=== PATIENT | female | born 1995 | race African-American/Black ===

== ENCOUNTER 2017-03-18 23:44 | Emergency (ER) | payer OTHER ==
[~2017-03-18] VITALS: Ht 162.6 cm; Wt 102.1 kg
[~2017-03-18 23:44] MED LIST: CITRATE OF MAG296 ML PO; NOHOMEMEDICATIONS; PRENATAL PO; ULTRAM 50MG TAB50 MG PO; ZPAK PO
[2017-03-18] MEDS ORDERED: TYLENOL EXTRA500 MG PO (23:59)
[2017-03-19] MEDS ORDERED: ZOFRAN ODT8 MG PO ×2 (01:20→01:25)
== END 2017-03-19 01:33 | disposition home or self-care (01) ==
LOC: ER 23:44
DX: J06.9 Acute upper respiratory infection, unspecified (principal); R11.2 Nausea with vomiting, unspecified; R19.7 Diarrhea, unspecified; Z88.8 Allergy status to other drugs, medicaments and biological substances

== ENCOUNTER 2017-12-25 22:48 | Emergency (ER) | payer OTHER ==
[~2017-12-25] VITALS: Ht 162.6 cm; Wt 90.7 kg
[~2017-12-25 22:48] MED LIST changes: +TYLENOL EXTRA500 MG PO; +ZOFRAN ODT8 MG PO
[2017-12-25] MEDS ORDERED: TRAMADOL 50 MG50 MG PO (23:35)
[2017-12-25] MEDS ORDERED: NAPROSYN500 MG PO (23:35)
[2017-12-26 00:03] VITALS: BP 125/78
== END 2017-12-26 00:06 | disposition home or self-care (01) ==
LOC: ER 22:48
DX: S93.402A Sprain of unspecified ligament of left ankle, initial encounter (principal); X58.XXXA Exposure to other specified factors, initial encounter; Y93.89 Activity, other specified; Y92.89 Other specified places as the place of occurrence of the external cause; Y99.8 Other external cause status

== ENCOUNTER 2018-02-25 09:31 | Emergency (ER) | payer BC, OTHER ==
[~2018-02-25] VITALS: Ht 170.2 cm; Wt 90.7 kg
[2018-02-25 09:31] VITALS: BP 121/47
[~2018-02-25 09:31] MED LIST changes: +NAPROSYN500 MG PO; +TRAMADOL 50 MG50 MG PO
[2018-02-25] MEDS ORDERED: AMOXICILLIN 50500 MG PO (10:24)
== END 2018-02-25 10:20 | disposition home or self-care (01) ==
LOC: ER 09:31
DX: J02.0 Streptococcal pharyngitis (principal); Z88.8 Allergy status to other drugs, medicaments and biological substances

== ENCOUNTER 2018-04-03 15:03 | Emergency (ER) | payer BC, OTHER ==
[~2018-04-03] VITALS: Ht 162.6 cm; Wt 99.8 kg
[~2018-04-03 15:03] MED LIST changes: +AMOXICILLIN 50500 MG PO
[2018-04-03] MEDS ORDERED: COLACE100 MG PO (15:31)
[2018-04-03 16:25] LABS: ABSOLUTE NEUTROPHILS 3.8 thou/uL (1.4-8.2); BASOPHILS 0.4 % (0.0-2.0); EOSINOPHILS 0.6 % (0.0-3.0); HEMATOCRIT 37.9 % (37.0-47.0); HEMOGLOBIN 13.4 gm/dL (12.0-15.0); LYMPHOCYTES 34.8 % (24.0-44.0); MCH 29.5 pg (26.0-34.0); MCHC 35.3 g/dL (28.0-37.0); MCV 83.6 fL (80.0-100.0); MONOCYTES 8.1 % (1.0-8.0); PLATELET COUNT 159 thou/uL (150-400); POLYS 56.1 % (36.0-66.0); RBC 4.53 mil/uL (4.20-5.00); RDW 12.5 % (10.5-14.5); WBC 6.8 thou/uL (4.0-11.0)
[2018-04-03 16:30] LABS: URINE BILIRUBIN NEGATIVE (Negative); URINE BLOOD TRACE (Negative); URINE CLARITY SL CLOUDY; URINE COLOR YELLOW; URINE GLUCOSE-RANDOM* NEGATIVE (Negative); URINE KETONES NEGATIVE (Negative); URINE NITRITE-REFLEX NEGATIVE (Negative); URINE PROTEIN (DIPSTICK) TRACE (Negative); URINE SPECIFIC GRAVITY 1.025 (1.005-1.035); URINE UROBILINOGEN 0.2 E.U./dl (0.2-1.0)
[2018-04-03 16:31] LABS: URINE LEUKOCYTES-REFLEX 2+ (Negative)
[2018-04-03 16:54] LABS: CASTS None Seen /LPF (None Seen); SQUAMOUS >10 Many /LPF (0-3); URINE WBC-REFLEX >25 Many /HPF (0-5)
[2018-04-03 16:55] LABS: BACTERIA-REFLEX 1-9 Few /HPF (None Seen); CALCIUM OXALATE 0-3 Few /LPF (None Seen); URINE RBC 0-2 Rare /HPF (0-2)
[2018-04-03] MEDS ORDERED: HYDROCORTISONE30 G9 RECTAL (17:29)
[2018-04-03] MEDS ORDERED: KEFLEX500 M1 PO (17:29)
[2018-04-03 17:49] VITALS: BP 128/76
== END 2018-04-03 17:50 | disposition home or self-care (01) ==
LOC: ER 15:03
PROVIDERS: Nurse Practitioner
DX: K64.4 Residual hemorrhoidal skin tags (principal); Z88.8 Allergy status to other drugs, medicaments and biological substances